=== PATIENT | male | born 1985 | race Two or more races ===

== ENCOUNTER 2020-07-16 15:21 | Emergency (ER) | payer MEDICAID ==
[~2020-07-16] VITALS: Ht 182.9 cm; Wt 120.0 kg
[2020-07-16] MEDS ORDERED: IBUPROFEN 600MG TABLET PO ONE (16:00)
[2020-07-16] MEDS ORDERED: LIDOCAINE HCL 1% 20ML VIAL (Pyxis) INJ INFIL ONE (16:30)
[2020-07-16] MEDS ORDERED: TETANUS, DIPHTHERIA, PERTUSSIS VAC/PF 0.5ML (>7YR OLD) IM ONE (18:00)
[2020-07-16 18:38] VITALS: BP 167/97
== END 2020-07-16 18:38 | disposition home or self-care (01) ==
LOC: ER 15:21
DX: S61.211A Laceration without foreign body of left index finger without damage to nail, initial encounter (principal); S61.213A Laceration without foreign body of left middle finger without damage to nail, initial encounter; S61.215A Laceration without foreign body of left ring finger without damage to nail, initial encounter; S61.218A Laceration without foreign body of other finger without damage to nail, initial encounter; X58.XXXA Exposure to other specified factors, initial encounter; Y93.89 Activity, other specified; Y92.89 Other specified places as the place of occurrence of the external cause; Y99.8 Other external cause status
CPT/HCPCS: 12002; 73130; 90471; 90715; 99283; J3490

== ENCOUNTER 2020-07-18 10:20 | Emergency (ER) | payer MEDICAID ==
[~2020-07-18] VITALS: Ht 182.9 cm; Wt 118.0 kg
[2020-07-18 10:28] VITALS: BP 151/93
== END 2020-07-18 11:47 | disposition home or self-care (01) ==
LOC: ER 10:20
DX: Z48.00 Encounter for change or removal of nonsurgical wound dressing (principal)
CPT/HCPCS: 99282

== ENCOUNTER 2020-07-29 11:31 | Emergency (ER) | payer MEDICAID ==
[~2020-07-29] VITALS: Ht 182.9 cm; Wt 118.0 kg
[2020-07-29 13:00] VITALS: BP 139/87
== END 2020-07-29 13:01 | disposition home or self-care (01) ==
LOC: ER 11:31
DX: Z48.02 Encounter for removal of sutures (principal)
CPT/HCPCS: 99281